=== PATIENT | female | born 1950 | race Caucasian/White ===

== ENCOUNTER → 2017-02-19 12:58 | Outpatient (CLI) | payer MEDICARE | END | disposition home or self-care (01) | LOC: D.MAMMO 11:15 | DX: Z12.31 Encounter for screening mammogram for malignant neoplasm of breast (principal) ==

== ENCOUNTER 2018-04-10 13:00 | Outpatient (CLI) | payer MEDICARE | END 2018-04-10 14:00 | disposition home or self-care (01) | LOC: D.MAMMO 13:00 | DX: Z12.31 Encounter for screening mammogram for malignant neoplasm of breast (principal) ==

== ENCOUNTER → 2019-04-27 20:00 | Outpatient (CLI) | payer OTHER | END | disposition home or self-care (01) | LOC: D.MAMMO 13:00 | PROVIDERS: ATTEND Nurse Practitioner | DX: Z12.31 Encounter for screening mammogram for malignant neoplasm of breast (principal) ==

== ENCOUNTER 2019-09-01 06:31 | Day surgery (SDC) | payer OTHER ==
[~2019-09-01] VITALS: Ht 165.1 cm; Wt 80.9 kg
--- NOTE | ~2019-09-01 | OP ---
PATIENT NAME: WHITLEY BAIRES MEDICAL RECORD: [id number] :51 [facility]: SURGEON: IAN MCALLISTER DO DATE OF OPERATION: 09/01/2019 PROCEDURE: Colonoscopy with polypectomy and biopsies. INDICATIONS FOR PROCEDURE: Periumbilic abdominal tenderness and diarrhea. SCOPE: iDevices video pediatric colonoscope. MEDICATIONS: Propofol 400 mg IV per anesthesia. WITHDRAWAL TIME: 15 minutes. ESTIMATED BLOOD LOSS: Minimal. COMPLICATIONS: None. FINDINGS: Informed consent was given. The patient was made comfortable with the above medication. After reaching an adequate level of sedation by slow IV push, the patient was placed in the left side. A digital rectal examination was performed and was normal. The endoscope was then advanced under direct visualization through the rectum to the cecum and terminal ileum. The endoscope was slowly withdrawn and mucosa was carefully examined. The prep quality was good. The terminal ileum appeared normal. Cold forceps biopsies were taken to submit for histopathology. There were 3 polyps visualized in the colon. Two were located in the cecum. They were benign appearing and sessile and measured approximately 2 mm in diameter. They were both removed using cold forceps in 1 piece. In the transverse colon, there was a benign appearing sessile polyp, which measured approximately 4 mm in diameter. It was removed using cold forceps in 2 pieces. There was evidence of extensive diverticulosis throughout the colon with the majority of the diverticula located in the descending and sigmoid colon. There was no evidence of diverticulitis. Retroflexion was performed in the rectum with visualization of grade I internal hemorrhoids without bleeding. During the endoscopy, stool was collected to submit for stool studies to rule out infectious causes for diarrhea. Random cold forceps biopsies were taken to submit for histopathology and to rule out the presence of microscopic colitis. The endoscope was withdrawn from the patient. The patient tolerated the procedure well and there were no complications. IMPRESSION: 1. Three polyps as described above, removed using cold forceps. 2. Extensive diverticulosis without diverticulitis. 3. Grade I internal hemorrhoids without bleeding. PLAN AND RECOMMENDATIONS: 1. Discharge home when recovery parameters are met. 2. Follow up biopsy specimen results. 3. High fiber diet. 4. Continue current medications. 5. A prescription for dicyclomine 20 mg t.i.d. p.r.n. will be given for diarrhea and periumbilical abdominal tenderness. 6. If biopsies are negative and diarrhea persists with use of dicyclomine, I would recommend an upper endoscopy for small bowel biopsies and further workup. OPERATIVE REPORT [id number] WHITLEY BAIRES 7. Recall colonoscopy in 3-5 years based on a number of polyps removed on today's examination. TRANSINT:[id number] Voice Confirmation ID: [id number] DOCUMENT ID: [id number] IAN MCALLISTER DO CC: [id number] DICTATION DATE: 09/01/19915 [employer] FILLING: 09/01/19 1048 [facility] 09/01/19 [facility] [address] [place] [address]
[2019-09-01 07:00] LABS: HEMATOCRIT 44.6 % (36.0-48.0); HEMOGLOBIN 14.5 g/dL (12-16); MCH 30.1 pg (26.0-34.0); MCHC 32.5 g/dL (31.0-37.0); MCV 92.5 fL (80.0-100.0); MEAN PLATELET VOLUME 9.1 fL (7.4-10.4); RBC 4.82 10x6/uL (4.00-5.40); RDW 12.5 % (11.5-14.5); WBC 3.6 10x3/uL (4.8-10.8)
[2019-09-01] MEDS ORDERED: ZOCOR40 MG PO (07:51)
[2019-09-01] MEDS ORDERED: ZOLOFT100 MG PO (07:52)
[2019-09-01 08:08] VITALS: BP 126/69; Ht 165.1 cm; Wt 80.9 kg
--- NOTE | 2019-09-01 09:31 | NUR ---
0925-RECD TO ROOM, AROUSES EASILY. IV PATENT. RESP WITH EASE.
--- NOTE | 2019-09-01 09:59 | NUR ---
0950-IV D/C. DISCHARGE INSTRUCTIONS REVIEWED. UP TO BATHROOM, VOIDS AND DRESSED. 0955-D/C HOME VIA WHEELCHAIR TO [facility].
== END 2019-09-01 09:55 | disposition home or self-care (01) ==
LOC: D.OPS 06:31
PROVIDERS: Anesthesiology; ATTEND Internal Medicine Gastroenterology
DX: R10.33 Periumbilical pain (principal); R19.7 Diarrhea, unspecified; K63.5 Polyp of colon

== ENCOUNTER → 2019-12-30 12:41 | Outpatient (CLI) | payer OTHER ==
[2019-09-01 08:08] VITALS: BMI 29.6
[~2019-12-30 12:41] MED LIST: ZOCOR40 MG PO; ZOLOFT100 MG PO
== END | disposition home or self-care (01) ==
LOC: D.NM 12:41
PROVIDERS: ATTEND Internal Medicine Gastroenterology
DX: R10.11 Right upper quadrant pain (principal)

== ENCOUNTER 2020-02-03 08:03 | Day surgery (SDC) | payer OTHER ==
[~2020-02-03] VITALS: Ht 165.1 cm; Wt 77.1 kg
[~2020-02-03 08:03] MED LIST changes: +BENTYL 20 MG TA20 MG PO
[2020-02-03 08:23] LABS: BASOPHILS 0.3 % (0-2); HEMATOCRIT 39.9 % (36.0-48.0); HEMOGLOBIN 13.6 g/dL (12-16); IMMATURE GRANULOCYTES 0.3 % (0-5); LYMPHOCYTES 29.3 % (15-50); MCH 31.1 pg (26.0-34.0); MCHC 34.1 g/dL (31.0-37.0); MCV 91.3 fL (80.0-100.0); MEAN PLATELET VOLUME 9.4 fL (7.4-10.4); MONOCYTES 7.7 % (2-11); NEUTROPHILS 59.4 % (40-80); PLATELET COUNT 146 10x3/uL (130-400); RBC 4.37 10x6/uL (4.00-5.40); RDW 12.3 % (11.5-14.5); WBC 3.6 10x3/uL (4.8-10.8)
[2020-02-03 08:33] LABS: CALC OSMOLALITY 283 mosm/kg (275-300); CALCIUM 8.5 mg/dL (8.5-10.1); CARBON DIOXIDE 26.7 mmol/L (21.0-32.0); CHLORIDE - SERUM 108 mmol/L (98-107); CREATININE - SERUM 0.7 mg/dL (0.6-1.3); GLUCOSE 107 mg/dL (74-106); POTASSIUM - SERUM 4.2 mmol/L (3.5-5.1); SODIUM 142 mmol/L (136-145); UREA NITROGEN 14 mg/dL (7-18); eGFR NON AFRICAN AMERICAN 88 mL/min (90-120)
[2020-02-03 09:02] VITALS: BP 122/67; Ht 165.1 cm; Wt 77.1 kg
[2020-02-03] MEDS ORDERED: HYDROCODON-ACE1 EA10 PO (12:40)
--- NOTE | 2020-02-03 15:19 | NUR ---
1520 ASSISTED TO BATHROOM AND UNABLE TO VOID. SECOND BAG OF IVF STARTED W.O
--- NOTE | 2020-02-03 17:54 | NUR ---
1630 IV REMOVED INSTRUCTIONS GIVEN 1620 VOIDED 1635 D/C HOME
--- NOTE | 2020-02-07 14:09 | OP ---
PATIENT NAME: WHITLEY BAIRES MEDICAL RECORD: [id number] :51 LOCATION:[facility] ADMISSION DATE: SURGEON: JOYCELYN YOUNG MD DATE OF OPERATION: 02/03/2020 PREOPERATIVE DIAGNOSES: 1. Biliary dyskinesia. 2. Hypercholesterolemia. POSTOPERATIVE DIAGNOSES: 1. Biliary dyskinesia. 2. Hypercholesterolemia. PROCEDURE: Laparoscopic cholecystectomy. SURGEON: Joycelyn Young MD REPORT OF PROCEDURE: The patient's abdomen was prepped and draped in sterile fashion. A cutdown was made on the superior aspect of the umbilicus. The 0 Vicryls were placed in the fascia bilaterally and the fascia was incised with a 15 blade. I then bluntly entered the peritoneal cavity and placed a 12 mm Yokasta port. Under direct visualization, a 5 mm trocar was placed in the epigastrium and two more 5 mm trocars were placed in the right subcostal region. The gallbladder was grasped and elevated. Upon grasping the gallbladder, it actually perforated and there was spillage of bile. There were no acute inflammatory changes to the gallbladder, but it was noted to be distended. We dissected out the cystic artery and cystic duct and these were clipped proximally and distally and ligated in standard fashion. The gallbladder was taken off the liver bed using electrocautery and placed into an EndoCatch bag. The right upper quadrant was irrigated out and any bleeding from the liver bed was treated with electrocautery. The ports and insufflation were then removed and the gallbladder was taken out through the umbilicus. The umbilical fascia was closed with interrupted 0 Vicryls times 3. The wounds were irrigated out with normal saline and infused with 10 mL of 0.25% Marcaine with epinephrine. The skin incisions were closed with subcutaneous 5-0 Monocryl and dressed appropriately. COMPLICATIONS: None. CONDITION: Stable. ANESTHESIA: General endotracheal and local. BLOOD LOSS: Minimal. NTS:[id number] Voice Confirmation ID: [id number] DOCUMENT ID: [id number] OPERATIVE REPORT [id number] WHITLEY BAIRES CHRISTIAN MD at 1409 CC: [id number] DICTATION DATE: 02/03/20 1340 OCCUPATIONAL THERAPIST REHAB MANAGER: 02/03/202125 [facility] 02/03/20 [facility] [address] [place] [address]
== END 2020-02-03 16:35 | disposition home or self-care (01) ==
LOC: D.OPS 08:03
PROVIDERS: ATTEND Surgery
DX: K82.8 Other specified diseases of gallbladder (principal); E78.00 Pure hypercholesterolemia, unspecified; M19.90 Unspecified osteoarthritis, unspecified site